=== PATIENT | female | born 1985 | race Caucasian/White ===

== ENCOUNTER 2017-12-14 17:50 | Emergency (ER) | payer BC ==
[2017-12-14] MEDS ORDERED: NORMAL SALINE 1000 ML 1,000 ML IV PRN (18:47)
--- NOTE | 2017-12-14 19:09 | ER Document Report ---
ED Medical Screen (RME) - General Chief Complaint: Abdominal Pain Stated Complaint: ABDOMINAL PAIN Time Seen by Provider: 12/14/17 18:45 Notes: 32 years old female presents today with right-sided abdominal pain since this morning, the pain gradually increasing intensity. Associated with slight nausea no vomiting denies any diarrhea dysuria frequency urgency. TRAVEL OUTSIDE OF THE [place] IN LAST 30 DAYS: No - Related Data Allergies/Adverse Reactions: No Known Allergies Allergy (Verified 12/14/17 17:52) Past Medical History - Social History Chew tobacco use (# tins/day): No Frequency of alcohol use: None Drug Abuse: None Renal/ Medical History: Denies: Hx Peritoneal Dialysis Physical Exam - Vital signs Vitals: Temp Pulse Resp BP Pulse Ox 99.3 F 110 H 20 145/96 H 99 12/14/17 17:55 12/14/17 17:55 12/14/17 17:55 12/14/17 17:55 12/14/17 17:55 Course - Vital Signs Vital signs: Temp Pulse Resp BP Pulse Ox 97.5 F 58 L 18 114/63 100 12/14/17 18:30 12/14/17 18:30 12/14/17 18:30 12/14/17 18:30 12/14/17 18:30
[2017-12-14 19:28] LABS: ABSOLUTE BASOPHILS # (AUTO) 0.1 10^3/uL (0.0-0.2); ABSOLUTE EOSINOPHILS # (AUTO) 0.1 10^3/uL (0.0-0.6); ABSOLUTE LYMPHOCYTES (AUTO) 2.3 10^3/uL (0.5-4.7); ABSOLUTE MONOCYTES (AUTO) 0.8 10^3/uL (0.1-1.4); BASOPHILS % (AUTO) 0.9 % (0-2); EOSINOPHILS % (AUTO) 0.8 % (0-6); HEMATOCRIT 45.6 % (36.0-47.0); HEMOGLOBIN 15.9 g/dL (12.0-15.5); MEAN CORPUSCULAR HEMOGLOBIN 31.4 pg (27.0-33.4); MEAN CORPUSCULAR HGB CONC 34.9 g/dL (32.0-36.0); MEAN CORPUSCULAR VOLUME 90 fl (80-97); MONOCYTES % (AUTO) 5.6 % (3-13); PLATELET COUNT 262 10^3/uL (150-450); RED BLOOD COUNT 5.06 10^6/uL (3.72-5.28); RED CELL DISTRIBUTION WIDTH 12.6 % (11.5-14.0); SEGMENTED NEUTROPHILS % (AUTO) 76.7 % (42-78); TOTAL CELLS COUNTED % (AUTO) 100 %; WHITE BLOOD COUNT 14.4 10^3/uL (4.0-10.5)
--- NOTE | 2017-12-14 19:31 | ER Document Report ---
ED GI/ - General Chief Complaint: Abdominal Pain Stated Complaint: ABDOMINAL PAIN Time Seen by Provider: 12/14/17 18:45 Notes: Patient is a 32-year-old female that comes to the emergency department for chief complaint of right-sided abdominal pain, she states that started this morning, worsened throughout the day, is constant. She denies nausea or vomiting, she had a normal bowel movement, she denies dysuria, vaginal discharge , vaginal bleeding, or flank pain. She has an IUD. She denies any surgeries except for hernia repair as an infant. No daily medications or medical history reported otherwise. TRAVEL OUTSIDE OF THE [place] IN LAST 30 DAYS: No - Related Data Allergies/Adverse Reactions: No Known Allergies Allergy (Verified 12/14/17 17:52) Past Medical History - General Information source: Patient - Social History Smoking Status: Never Smoker Chew tobacco use (# tins/day): No Frequency of alcohol use: Social Drug Abuse: None Lives with: Family Family History: Reviewed & Not Pertinent Patient has suicidal ideation: No Patient has homicidal ideation: No - Medical History Medical History: Negative Renal/ Medical History: Denies: Hx Peritoneal Dialysis Past Surgical History: Reports: Hx Herniorrhaphy - Immunizations Immunizations up to date: Yes Hx Diphtheria, Pertussis, Tetanus Vaccination: Yes Review of Systems - Review of Systems Constitutional: No symptoms reported EENT: No symptoms reported Cardiovascular: No symptoms reported Respiratory: No symptoms reported Gastrointestinal: See HPI Genitourinary: No symptoms reported Female Genitourinary: No symptoms reported Musculoskeletal: No symptoms reported Skin: No symptoms reported Hematologic/Lymphatic: No symptoms reported Neurological/Psychological: No symptoms reported Physical Exam - Vital signs Vitals: Temp Pulse Resp BP Pulse Ox 99.3 F 110 H 20 145/96 H 99 12/14/17 17:55 12/14/17 17:55 12/14/17 17:55 12/14/17 17:55 12/14/17 17:55 - Notes Notes: GENERAL: Alert, interacts well. No acute distress. HEAD: Normocephalic, atraumatic. EYES: Pupils equal, round, and reactive to light. Extraocular movements intact. ENT: Oral mucosa moist, tongue midline. Oropharynx unremarkable. Airway patent. Nares patent, no nasal septal hematoma, TM's intact. NECK: Full range of motion. Supple. Trachea midline. LUNGS: Clear to auscultation bilaterally, no wheezes, rales, or rhonchi. No respiratory distress. HEART: Regular rate and rhythm. No murmur ABDOMEN: Tender generally in the right lower abdomen with specific tenderness that is increased over McBurney's point. Remaining abdomen soft and benign. Bowel sounds unremarkable. No pelvic tenderness. GENITOURINARY: Deferred EXTREMITIES: Moves all 4 extremities spontaneously. No edema, normal radial and dorsalis pedis pulses bilaterally. No cyanosis. BACK: no cervical, thoracic, lumbar midline tenderness. No saddle anesthesia, normal distal neurovascular exam. NEUROLOGICAL: Alert and oriented x3. Normal speech. [cranial nerves II through XII grossly intact]. PSYCH: Normal affect, normal mood. SKIN: Warm, dry, normal turgor. No rashes or lesions noted. Course - Re-evaluation Re-evalutation: Patient does have a specific right lower quadrant pain. She does have a history that is suggestive of as well. Leukocytosis at 14,000 with elevation of neutrophils. Chemistry shows mild elevation of liver function tests, ALT 133 AST 69, bilirubin normal, alk phos normal, right upper quadrant without significant tenderness on my evaluation. Patient states she drinks regular alcohol although not since the weekend. Discussed with patient, decision was made to proceed with CAT scan to rule out acute appendicitis. 12/14/17 23:25 Called and spoke with radiology, I am still unable to either review images or read a report on the CAT scan that was supposed to be performed at 2130. CAT scan with no acute findings, appendix visualized and normal. On my reevaluation patient continues to have right lower quadrant pain with some wincing with palpation of the area. Ultrasound was performed and shows normal ovary and normal placement of the IUD. Called and spoke with Dr. Roman, general surgeon, he came and evaluated the patient. He evaluated reports and labs. Based on his evaluation at bedside, CAT scan, workup he feels that patient is safe to discharge home at this time with return precautions. Patient is very agreeable with this after discussion with surgeon. Given dose of Toradol, placing on Toradol at home, discussed return precautions in detail, patient states understanding and agreement with plan. - Vital Signs Vital signs: Temp Pulse Resp BP Pulse Ox 98.1 F 103 H 18 118/71 99 12/15/17 02:14 12/15/17 02:14 12/15/17 02:14 12/15/17 02:14 12/15/17 02:14 - Laboratory Result Diagrams: 12/14/17 19:00 12/14/17 19:00 Laboratory results interpreted by me: 12/14/17 12/14/17 12/14/17 19:00 19:00 19:00 WBC 14.4 H Hgb 15.9 H Absolute Neutrophils 11.0 H AST 69 H ALT 133 H Ur Leukocyte Esterase TRACE H Discharge - Discharge Clinical Impression: Right lower quadrant pain Condition: Stable Disposition: HOME, SELF-CARE Additional Instructions: Observation for Appendicitis At this time, the abdominal pain does not seem to be appendicitis. Our next "test" will be passage of time. If you have early appendicitis, signs will appear to help us make the diagnosis. Most of the time, the pain goes away. In these cases, the pain is usually due to a virus in the lymph glands near the appendix, ovulation, etc. Unless the pain is gone, you should come back for a recheck. This is usually done in 8 to 12 hours. Be sure you understand your follow-up instructions. Come back immediately if: (1) the pain becomes much more severe and sharply increases with movement or coughing, (2) vomiting becomes frequent, (3) there is blood in the vomit, urine, or bowel movements, (4) there are shaking chills or fever, or (5) the abdomen becomes more distended or swollen. Prescriptions: Ketorolac Tromethamine [Toradol 10 mg Tablet] 10 mg PO Q8HP PRN #24 tablet PRN Reason:
[2017-12-14 19:34] LABS: AMORPHOUS SEDIMENT,URINE TRACE /HPF; APPEARANCE,URINE SLIGHTLY-CLOUDY; BILIRUBIN,URINE NEGATIVE (NEGATIVE); COLOR,URINE YELLOW; GLUCOSE, URINE NEGATIVE (NEGATIVE); KETONES,URINE NEGATIVE (NEGATIVE); LEUKOCYTE ESTERASE,URINE TRACE (NEGATIVE); NITRITE,URINE NEGATIVE (NEGATIVE); PROTEIN,URINE NEGATIVE (NEGATIVE); URINE SPECIFIC GRAVITY 1.014; UROBILINOGEN,URINE NEGATIVE mg/dL (<2.0)
[2017-12-14 19:41] LABS: ALANINE AMINOTRANSFERASE 133 U/L (9-52); ALKALINE PHOSPHATASE 88 U/L (38-126); ANION GAP 11 (5-19); ASPARTATE AMINO TRANSFERASE 69 U/L (14-36); BILIRUBIN,DIRECT 0.3 mg/dL (0.0-0.4); BILIRUBIN,TOTAL 0.9 mg/dL (0.2-1.3); BLOOD UREA NITROGEN 12 mg/dL (7-20); CALCIUM 9.8 mg/dL (8.4-10.2); CARBON DIOXIDE 29 mmol/L (22-30); CHLORIDE 100 mmol/L (98-107); GLUCOSE 99 mg/dL (75-110); POTASSIUM 4.2 mmol/L (3.6-5.0); SODIUM 139.9 mmol/L (137-145); TOTAL PROTEIN 8.2 g/dL (6.3-8.2)
--- NOTE | 2017-12-14 23:48 | RADIOLOGY REPORT (SQ) ---
EXAM DESCRIPTION: CT ABDOMEN PELVIS WITH IV CONTRAST COMPLETED DATE/TME: 12/14/2017 18:47 CLINICAL HISTORY: 32 years, Female, Right lower quadrant abdominal pain rule out appen COMPARISON: None Available TECHNIQUE: Contiguous axial images of the abdomen and pelvis were obtained followed by reconstruction images. This exam was performed according to our departmental dose-optimization program, which includes automated exposure control, adjustment of the mA and/or kV according to patient size and/or use of iterative reconstruction technique. FINDINGS: There is an intrauterine device within the uterus. Contour of both ovaries are within normal limits for patient's age. Underlying ovarian cyst is a possibility. The liver, spleen, pancreas and kidneys are within normal limits. There is no hydronephrosis or renal stones. The gallbladder is unremarkable by CT criteria. Adrenal glands are within normal limits. Aorta is of normal caliber and tapering. There is no free fluid in the abdomen or pelvis. There is no bowel obstruction. There is no stranding of the mesenteric fat to suggest an inflammatory response. The appendix is within normal limits. There is no pericecal inflammation. IMPRESSION: No acute intra-abdominal abnormality.
[2017-12-15] MEDS ORDERED: KETOROLAC TROMETHAMINE INJ/PF 30 MG/1 ML SDV IV ONE (00:02)
--- NOTE | 2017-12-15 01:35 | RADIOLOGY REPORT (SQ) ---
EXAM DESCRIPTION: US TRANSVAGINAL COMPLETED DATE/TME: 12/15/2017 00:02 CLINICAL HISTORY: 32 years, Female, RLQ pain, eval ovary COMPARISON: CT 12/14/2017 TECHNIQUE: Transverse and longitudinal transabdominal and transvaginal sonographic images of the pelvis LIMITATIONS: None. FINDINGS: The uterus measures 10.0 x 4.6 x 4.9 cm. IUD within the endometrial canal. The myometrium is homogenous. On transvaginal imaging, the endometrium measures 6.9 mm in thickness. The right ovary measures 3.2 x 1.7 x 2.7 cm. The left ovary measures 3.7 x 2.8 x 2.5 cm. Doppler and spectral analysis with color flow was utilized. Arterial and venous flow to both ovaries. No adnexal cyst or mass. No free fluid. IMPRESSION: IUD in place. Remainder is unremarkable. 2011 [employer]- All Rights Reserved
--- NOTE | 2017-12-15 02:09 | PDOC CONSULTATION ---
History of Present Illness Admission Date/PCP: 12/15/17 Patient complains of: abdominal pains History of Present Illness: TOLU OLIVERA is a 32 year old female who c/o RLQ pains since waking up yesterday am . May have had nausea but no vomiting,diarrhea,constipation or dysuria. No fever/chills. 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 She drinks alcohol but not on weekends. Social History Smoking Status: Never Smoker Frequency of Alcohol Use: Social Family History Parental Family History Reviewed: Yes Children Family History Reviewed: No Sibling(s) Family History Reviewed.: No Medication/Allergy Home Medications: Ketorolac Tromethamine [Toradol 10 mg Tablet] 10 mg PO Q8HP PRN #24 tablet 12/15 Allergies/Adverse Reactions: No Known Allergies Allergy (Verified 12/14/17 17:52) Review of Systems Constitutional: PRESENT: as per HPI Eyes: PRESENT: other - no visual/hearing changes Cardiovascular: PRESENT: other - no chest pains/cough Gastrointestinal: PRESENT: abdominal pain, nausea Genitourinary: PRESENT: other - no dysuria Neurological: PRESENT: other - no seizures Physical Exam Vital Signs: Temp Pulse Resp BP Pulse Ox 97.5 F 58 L 18 114/63 100 12/14/17 18:30 12/14/17 18:30 12/14/17 18:30 12/14/17 18:30 12/14/17 18:30 Intake & Output 12/13/17 12/14/17 12/15/17 06:59 06:59 06:59 Weight 103 kg General appearance: PRESENT: mild distress Head exam: PRESENT: atraumatic Eye exam: PRESENT: conjunctiva pink Mouth exam: PRESENT: moist Neck exam: PRESENT: full ROM Respiratory exam: PRESENT: clear to auscultation manuel Cardiovascular exam: PRESENT: RRR Pulses: PRESENT: normal radial pulses Vascular exam: PRESENT: normal capillary refill GI/Abdominal exam: PRESENT: soft, tenderness - RLQ on deep palpation Rectal exam: PRESENT: deferred Extremities exam: PRESENT: full ROM Musculoskeletal exam: PRESENT: ambulatory Neurological exam: PRESENT: alert, oriented to person, oriented to place, oriented to time, oriented to situation Psychiatric exam: PRESENT: appropriate affect Skin exam: PRESENT: normal color, warm Results Laboratory Results: 12/14/17 19:00 12/14/17 19:00 12/14/17 12/14/17 12/14/17 19:00 19:00 19:00 WBC 14.4 H RBC 5.06 Hgb 15.9 H Hct 45.6 MCV 90 MCH 31.4 MCHC 34.9 RDW 12.6 Plt Count 262 Seg Neutrophils % 76.7 Lymphocytes % 16.0 Monocytes % 5.6 Eosinophils % 0.8 Basophils % 0.9 Absolute Neutrophils 11.0 H Absolute Lymphocytes 2.3 Absolute Monocytes 0.8 Absolute Eosinophils 0.1 Absolute Basophils 0.1 Sodium 139.9 Potassium 4.2 Chloride 100 Carbon Dioxide 29 Anion Gap 11 BUN 12 Creatinine 0.86 Est GFR ( Amer) > 60 Est GFR (Non-Af Amer) > 60 Glucose 99 Calcium 9.8 Total Bilirubin 0.9 AST 69 H ALT 133 H Alkaline Phosphatase 88 Total Protein 8.2 Albumin 5.0 Urine Color YELLOW Urine Appearance SLIGHTLY-CLOUDY Urine pH 7.0 Ur Specific [place] 1.014 Urine Protein NEGATIVE Urine Glucose (UA) NEGATIVE Urine Ketones NEGATIVE Urine Blood NEGATIVE Urine Nitrite NEGATIVE Ur Leukocyte Esterase TRACE H Urine WBC (Auto) 4 Urine RBC (Auto) 1 Impressions: Abdomen/Pelvis CT 12/14/17 18:47 IMPRESSION: No acute intra-abdominal abnormality. Transvaginal US 12/15/17 00:02 IMPRESSION: IUD in place. Remainder is unremarkable. 2010 [employer]- All Rights Reserved Assessment & Plan - Diagnosis (1) Elevated LFTs Is this a current diagnosis for this admission?: Yes - Time Time Spent: 30 to 50 Minutes - Plan Summary Plan Summary: Doubt acute appendicitis Slightly elevated LFTs may be due to alcohol use Patient is hungry which is against acute appendicitis. She can go home but if pains worsen or develops fever next 12-24 hrs for her to go back to ED. I explained this to the patient and she understands.
[2017-12-15 02:17] VITALS: BP 118/71
== END 2017-12-15 02:23 | disposition home or self-care (01) ==
LOC: ER 17:50
DX: R10.31 Right lower quadrant pain (principal)
CPT/HCPCS: 99284; 96361; 96374; 36415; 85025; 81025; 80053; 81001; 76830; 93976; 74177; J1885; J7030